=== PATIENT | female | born 1935 | race Caucasian/White ===

== ENCOUNTER 2017-02-23 13:29 | Observation (INO) | payer MEDICARE, SELFPAY ==
[2017-02-23 14:15] LABS: #Basophils 0.1 thou/uL (0.0-0.2); #Eosinphils 0.3 thou/uL (0.0-0.7); #Lymphocytes 3.2 thou/uL (1.20-3.40); #Monocytes 0.7 thou/uL (0.11-0.59); %Basophils 1.5 % (0.0-1.0); %Eosinophils 3.4 % (0.0-10.0); %Lymphocytes 38.2 % (21.0-51.0); %Monocytes 8.4 % (0.0-10.0); Hematocrit 34.1 % (36.0-47.0); Red Blood Cell (RBC) Count 3.98 mill/uL (4.20-5.40); White Blood Cell (WBC) Count 8.4 thou/uL (4.8-10.8)
[2017-02-23 14:35] LABS: ALT (SGPT) 10 U/L (8-55); AST (SGOT) 19 U/L (5-34); Alkaline Phosphatase 84 U/L (40-150); Anion Gap 14 mmol/L (10-20); BUN (Urea Nitrogen) 13 mg/dL (9.8-20.1); Bilirubin, Total 0.3 mg/dL (0.2-1.2); Calc. Creatinine Clearance 0 mL/min (70-130); Calcium 9.7 mg/dL (7.8-10.44); Carbon Dioxide 22 mmol/L (23-31); Chloride 97 mmol/L (98-107); Estimated GFR-MDRD 73; Globulin 3.3 g/dL (2.4-3.5); Lipase 24 U/L (8-78); Protein, Total 7.4 g/dL (6.0-8.3)
[2017-02-23 14:36] LABS: Bilirubin Negative (Negative); Blood, Urine Small (Negative); Glucose, Urine (Dipstick) Negative (Negative); Ketone, Urine Negative (Negative); Nitrite Positive (Negative); Protein, Urine (Dipstick) Negative (Neg-Trace); Urobilinogen 0.2 mg/dL (0.2-1.0)
[2017-02-23 14:41] LABS: Bacteria/HPF 3+ HPF (None Seen)
[2017-02-23] MEDS ORDERED: Ciprofloxacin 500 MG TAB ONE (15:24)
[2017-02-23 16:56] VITALS: BMI 26.5
[2017-02-23] MEDS ORDERED: FLU VACC TS2017-18 (>65YR) 0.5 ML SYRINGE IM ONE (17:15)
[2017-02-23] MEDS ORDERED: Sodium Chloride 0.9% 1,000 ML IV SCH (17:42)
[2017-02-24] MEDS ORDERED: Sodium Chloride 0.9% 1,000 ML IV SCH (02:45)
[2017-02-24] MEDS ORDERED: cefTRIAXone\\ROCEPHIN 1 GM, Syringe 0.4 ML in Sterile Water 9.6 ML SLOW IVP SCH (03:00)
[2017-02-24 05:11] LABS: #Eosinphils 0.3 thou/uL (0.0-0.7); #Lymphocytes 2.6 thou/uL (1.20-3.40); #Monocytes 0.6 thou/uL (0.11-0.59); #Neutrophils 2.6 thou/uL (1.40-6.50); %Basophils 0.8 % (0.0-1.0); %Eosinophils 5.3 % (0.0-10.0); %Lymphocytes 42.5 % (21.0-51.0); %Monocytes 9.3 % (0.0-10.0); Hematocrit 34.3 % (36.0-47.0); Mean Platelet Volume 8.1 fL (7.4-10.4); White Blood Cell (WBC) Count 6.2 thou/uL (4.8-10.8)
[2017-02-24 05:31] LABS: Anion Gap 11 mmol/L (10-20); BUN (Urea Nitrogen) 10 mg/dL (9.8-20.1); Calc. Creatinine Clearance 65 mL/min (70-130); Calcium 9.1 mg/dL (7.8-10.44); Carbon Dioxide 20 mmol/L (23-31); Chloride 99 mmol/L (98-107); Estimated GFR-MDRD 81
[2017-02-24] MEDS: Acetaminophen 500 MG TAB PO PRN (09:30)
[2017-02-24] MEDS ORDERED: HYDROcodone/Acetaminophen 10/325 mg Tablet PO PRN (10:14)
[2017-02-24] MEDS ORDERED: Loperamide HCl 2 MG CAP PO PRN (10:14)
[2017-02-24] MEDS ORDERED: Acetaminophen 325 MG TAB PO PRN (10:14)
[2017-02-24] MEDS ORDERED: Sodium Chloride 1 GM TAB PO SCH (10:30)
[2017-02-24] MEDS: HYDROcodone/Acetaminophen 5/325 mg Tablet PO PRN (10:54)
[2017-02-24] MEDS: Sodium Chloride 0.9% 1,000 ML IV SCH ×3 (10:55→23:26)
[2017-02-24] MEDS: Ondansetron ODT 4 MG TAB PO PRN ×2 (12:50→18:24)
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
[2017-02-24] MEDS ORDERED: hydrALAZINE 20 MG/ML VIAL SLOW IVP SCH (16:30)
[2017-02-24] MEDS: Famotidine/PF 20 mg/2ml Vial SLOW IVP SCH (20:11)
[2017-02-24] MEDS: Sodium Chloride 1 GM TAB PO SCH (20:24)
[2017-02-25] MEDS: HYDROcodone/Acetaminophen 5/325 mg Tablet PO PRN ×2 (01:35→10:10)
[2017-02-25 05:29] LABS: #Basophils 0.1 thou/uL (0.0-0.2); #Eosinphils 0.3 thou/uL (0.0-0.7); #Lymphocytes 2.3 thou/uL (1.20-3.40); #Monocytes 0.5 thou/uL (0.11-0.59); #Neutrophils 2.4 thou/uL (1.40-6.50); %Basophils 1.3 % (0.0-1.0); %Eosinophils 4.8 % (0.0-10.0); %Lymphocytes 41.4 % (21.0-51.0); %Monocytes 9.5 % (0.0-10.0); Hematocrit 30.3 % (36.0-47.0); Mean Platelet Volume 7.7 fL (7.4-10.4); Red Blood Cell (RBC) Count 3.35 mill/uL (4.20-5.40); White Blood Cell (WBC) Count 5.6 thou/uL (4.8-10.8)
[2017-02-25 05:54] LABS: Anion Gap 11 mmol/L (10-20); BUN (Urea Nitrogen) 8 mg/dL (9.8-20.1); Calc. Creatinine Clearance 61 mL/min (70-130); Calcium 8.7 mg/dL (7.8-10.44); Carbon Dioxide 20 mmol/L (23-31); Chloride 108 mmol/L (98-107); Estimated GFR-MDRD 76
[2017-02-25] MEDS: Sodium Chloride 0.9% 1,000 ML IV SCH ×2 (08:33→17:17)
[2017-02-25] MEDS: Sodium Chloride 1 GM TAB PO SCH ×2 (08:33→21:17)
[2017-02-25] MEDS: Famotidine/PF 20 mg/2ml Vial SLOW IVP SCH ×2 (08:33→20:42)
[2017-02-25] MEDS ORDERED: Polyethylene Glycol OPTH DROP 15 ML BOT EA EYE PRN (12:27)
[2017-02-25] MEDS ORDERED: Non-Formulary Item 1 EACH (Ondansetron Hcl [Zofran] 4 MG) PO PRN (12:27)
[2017-02-25] MEDS: ALPRAZolam 0.25 MG TAB PO SCH ×3 (12:45→20:37)
--- NOTE | 2017-02-25 16:11 | PDOC.PN ---
- Subjective Encounter Start Date: 02/25/17 Encounter Start Time: 10:40 Pt seen earlier on rounds. no f/c, no diarrhea, no n/V, no CP or SOB. Feeling anxious. No cough or sputum production. some dysuria since catheter was removed 10 point ROS performed and neg for all except as per HPI - Objective Resuscitation Status: Resuscitation Status FULL:Full Resuscitation MAR Reviewed: Yes Vital Signs & Weight: Vital Signs (12 hours) Temp Pulse Pulse Pulse Resp BP BP 02/25/17 15:15 98.5 F 69 17 02/25/17 11:40 98.1 F 74 16 02/25/17 11:14 77 82 157/67 H 156/70 H 02/25/17 08:00 98.6 F 76 16 02/25/17 07:20 98.6 F 76 16 BP Pulse Ox 02/25/17 15:15 180/72 H 98 02/25/17 11:40 144/66 H 96 02/25/17 11:14 02/25/17 08:00 02/25/17 07:20 169/74 H 96 Weight Weight 144 lb 4.8 oz I&O: 02/24/17 02/25/17 02/26/17 06:59 06:59 06:59 Intake Total 1557 2827 250 Output Total 0 1 Balance 1557 2826 250 Result Diagrams: 02/25/17 05:01 02/25/17 05:01 Radiology Reviewed by me: Yes EKG Reviewed by me: Yes Phys Exam - Physical Examination Constitutional: NAD HEENT: PERRLA, moist MMs, sclera anicteric, oral pharynx no lesions Neck: no nodes, no JVD, supple, full ROM Respiratory: no wheezing, no rales, no rhonchi Cardiovascular: RRR, no significant murmur, no rub Gastrointestinal: soft, non-tender, no distention, positive bowel sounds Musculoskeletal: no edema, pulses present Neurological: non-focal, normal sensation, moves all 4 limbs Lymphatic: no nodes Psychiatric: normal affect, A&O x 3 Skin: no rash, normal turgor, cap refill <2 seconds Dx/Plan (1) Acute gastroenteritis Code(s): K52.9 - NONINFECTIVE GASTROENTERITIS AND COLITIS, UNSPECIFIED Status : Acute (2) Moderate dehydration Code(s): E86.0 - DEHYDRATION Status: Acute (3) Hyponatremia Code(s): E87.1 - HYPO-OSMOLALITY AND HYPONATREMIA Status: Acute (4) Anxiety Code(s): F41.9 - ANXIETY DISORDER, UNSPECIFIED Status: Acute - Plan pt medically ready fordischarge, but waiting to hear form APS regarding case. PT likely not safe to return home, will contine on observation until she is evaluated by them * .
[2017-02-25] MEDS: Acetaminophen 500 MG TAB PO PRN (20:37)
[2017-02-25] MEDS ORDERED: Atorvastatin Calcium 10 MG TAB PO SCH (21:00)
[2017-02-26] MEDS: Sodium Chloride 0.9% 1,000 ML IV SCH ×2 (01:48→09:53)
[2017-02-26] MEDS: HYDROcodone/Acetaminophen 5/325 mg Tablet PO PRN (05:29)
[2017-02-26] MEDS ORDERED: Levothyroxine Sodium 25 MCG TAB PO SCH (06:00)
[2017-02-26] MEDS ORDERED: Citalopram 20 MG TAB PO SCH (09:00)
[2017-02-26] MEDS ORDERED: Aspirin 81 mg Enteric Coated Tablet PO SCH (09:00)
[2017-02-26] MEDS: ALPRAZolam 0.25 MG TAB PO SCH ×2 (09:29→13:47)
[2017-02-26] MEDS: Sodium Chloride 1 GM TAB PO SCH (09:29)
[2017-02-26] MEDS: Famotidine/PF 20 mg/2ml Vial SLOW IVP SCH (09:31)
[2017-02-26] MEDS ORDERED: Amlodipine 10 MG TAB PO SCH (13:00)
--- NOTE | 2017-02-26 14:07 | PDOC.PN ---
- Subjective Encounter Start Date: 02/26/17 Encounter Start Time: 11:30 PT seen and examined, Case Management and grnad-daughter in the room and case discuassed with them. PT is doing well except for some nausea with eatng. No F /C, no n/V/D/C, no CP or SOB, no cough or sputum production. No GI bleeding. Looking into dispo options. APS has declared pt not to go home with daughter. PT optioned to go home with granddaughter with HHC until SNF placement can be arranged at pt out of pocket cost, or see if she qualifies for IPR. They wish to try IPR and we have asked them to evaluate. 10 point ROS performed and neg for all systems except as above - Objective Resuscitation Status: Resuscitation Status FULL:Full Resuscitation MAR Reviewed: Yes Vital Signs & Weight: Vital Signs (12 hours) Temp Pulse Resp BP BP Pulse Ox 02/26/17 13:47 78 190/79 H 02/26/17 11:50 98.7 F 78 16 190/79 H 96 02/26/17 08:00 98.8 F 78 16 02/26/17 07:42 98.8 F 78 16 161/67 H 94 L 02/26/17 02:54 98.4 F 72 16 170/69 H Weight Weight 144 lb 4.8 oz I&O: 02/25/17 02/26/17 02/27/17 06:59 06:59 06:59 Intake Total 2827 4084 Output Total 1 Balance 2826 4084 Result Diagrams: 02/25/17 05:01 02/25/17 05:01 Radiology Reviewed by me: Yes EKG Reviewed by me: Yes Phys Exam - Physical Examination Constitutional: NAD HEENT: PERRLA, moist MMs, sclera anicteric, oral pharynx no lesions Neck: no nodes, no JVD, supple, full ROM Respiratory: no wheezing, no rales, no rhonchi, clear to auscultation bilateral Cardiovascular: RRR, no significant murmur, no rub Gastrointestinal: soft, non-tender, no distention, positive bowel sounds Musculoskeletal: pulses present, edema present Neurological: non-focal, normal sensation, moves all 4 limbs Lymphatic: no nodes Psychiatric: normal affect, A&O x 3 Deviation from normal: some dementia Skin: no rash, normal turgor, cap refill <2 seconds Dx/Plan (1) Acute gastroenteritis Code(s): K52.9 - NONINFECTIVE GASTROENTERITIS AND COLITIS, UNSPECIFIED Status : Resolved Comment: no BM in 2 days. some nausea, no vomiting (2) Moderate dehydration Code(s): E86.0 - DEHYDRATION Status: Resolved Comment: D/C IV fluids (3) Hyponatremia Code(s): E87.1 - HYPO-OSMOLALITY AND HYPONATREMIA Status: Resolved (4) Anxiety Code(s): F41.9 - ANXIETY DISORDER, UNSPECIFIED Status: Chronic (5) Physical deconditioning Code(s): R53.81 - OTHER MALAISE Status: Acute - Plan cont current plan of care, plan discussed w/ family, PT/OT, criminal justice social worker * .
[2017-02-26 16:40] VITALS: BP 149/70; TEMP 97.8
[2017-02-27] MEDS ORDERED: Amlodipine 10 MG TAB PO SCH (09:00)
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
--- NOTE | 2017-04-09 12:08 | EKG ---
Test Reason : WEAKNESS Blood Pressure : / mmHG Vent. Rate : 072 BPM Atrial Rate : 072 BPM P-R Int : 174 ms QRS Dur : 080 ms QT Int : 400 ms P-R-T Axes : 057 022 039 degrees QTc Int : 438 ms Normal sinus rhythm Normal ECG Confirmed by RIRI PERRY MD ([id number]), desk editor JUSTINA LLANES ([id number]) on 04/09/2017 12:08:32 PM Referred By: Confirmed By:RIRI PERRY MD
== END 2017-02-26 17:45 ==
LOC: SCSER 13:29 → 2SW 15:09
PROVIDERS: ADMIT Internal Medicine Infectious Disease; ATTEND Internal Medicine Infectious Disease
DX: K52.9 Noninfective gastroenteritis and colitis, unspecified (principal); E86.0 Dehydration; E87.1 Hypo-osmolality and hyponatremia; F41.9 Anxiety disorder, unspecified; R53.81 Other malaise; E03.9 Hypothyroidism, unspecified; K08.109 Complete loss of teeth, unspecified cause, unspecified class; F17.210 Nicotine dependence, cigarettes, uncomplicated; Z79.82 Long term (current) use of aspirin; Z79.899 Other long term (current) drug therapy; Z97.2 Presence of dental prosthetic device (complete) (partial); Z90.49 Acquired absence of other specified parts of digestive tract; Z90.710 Acquired absence of both cervix and uterus; Z98.890 Other specified postprocedural states
CPT/HCPCS: 51701; 80048 ×2; 80053; 83605; 83690; 84443; 85025 ×3; 87077; 87086; 90732; 93005; 96361 ×5; 96374; 96375; 96376 ×2; 97116 ×2; 97139; 99285; 99406; G0008; G0009; G0378 ×2; G8978; G8979; Q2036; 36415; 81003; 81015; 90471; 90682; 96360; A4216; A4353; G8996-GN-CJ; G8997-GN-CJ; J0360; J0696; Q0162; S0028

== ENCOUNTER 2017-09-25 11:20 | Emergency (ER) | payer MEDICARE, MEDICAID ==
[2017-09-25 11:57] LABS: Bilirubin Negative (Negative); Blood, Urine Moderate (Negative); Clarity CLOUDY (Clear); Glucose, Urine (Dipstick) Negative (Negative); Leukocyte Moderate (Negative); Nitrite Positive (Negative); Protein, Urine (Dipstick) Negative (Neg-Trace); Urobilinogen 0.2 mg/dL (0.2-1.0); pH, Urine 6.5 (5.0-9.0)
[2017-09-25 11:59] LABS: Bacteria/HPF 1+ HPF (None Seen); Hyaline Casts/LPF 0-3 HYALINE CAST LPF (0-3 Hyaline); Pathc Cast-AUWi Flag 0.58 (0-2.49); Squamous Epithelial 0-3 HPF (0-3)
[2017-09-25 12:09] LABS: Crystals/HPF None Seen HPF (Negative); Oval Fat Bodies/HPF None Seen HPF (None Seen); Transitional Epithelial 0-3 HPF (0-3); Trichomonas/HPF None Seen HPF (None Seen)
[2017-09-25] MEDS ORDERED: Acetaminophen 500 MG TAB ONE ×2 (12:37→12:38)
--- NOTE | 2017-09-25 12:37 | RAD ---
THREE VIEWS RIGHT SHOULDER: HISTORY: Dementia, right shoulder pain. FINDINGS: AP internally, externally, and scapula Y views right shoulder are obtained. Three views right shoulder demonstrate degenerative changes seen in the right AC joint. No evidence of acute fractures, subluxations, or bony lesions seen. IMPRESSION: Normal 3 views right shoulder. POS: [facility]
[2017-09-25 12:49] LABS: ALT (SGPT) 9 U/L (8-55); AST (SGOT) 17 U/L (5-34); Albumin 3.9 g/dL (3.4-4.8); Alkaline Phosphatase 57 U/L (40-150); Anion Gap 14 mmol/L (10-20); BUN (Urea Nitrogen) 17 mg/dL (9.8-20.1); Bilirubin, Total 0.5 mg/dL (0.2-1.2); Calc. Creatinine Clearance 0 mL/min (70-130); Calcium 9.4 mg/dL (7.8-10.44); Carbon Dioxide 22 mmol/L (23-31); Chloride 104 mmol/L (98-107); Estimated GFR-MDRD 68; Glucose 84 mg/dL (83-110); Potassium 4.7 mmol/L (3.5-5.1); Protein, Total 6.9 g/dL (6.0-8.3); Sodium 135 mmol/L (136-145)
== END 2017-09-25 13:36 | disposition home or self-care (01) ==
LOC: ERS 11:20
DX: R45.1 Restlessness and agitation (principal); N39.0 Urinary tract infection, site not specified; Z71.6 Tobacco abuse counseling; E03.9 Hypothyroidism, unspecified; E78.5 Hyperlipidemia, unspecified; I25.2 Old myocardial infarction; D64.9 Anemia, unspecified; F03.90 Unspecified dementia, unspecified severity, without behavioral disturbance, psychotic disturbance, mood disturbance, and anxiety; F41.9 Anxiety disorder, unspecified; F32.9 Major depressive disorder, single episode, unspecified; F17.210 Nicotine dependence, cigarettes, uncomplicated; Z79.899 Other long term (current) drug therapy
CPT/HCPCS: 51701; 80053; 81003; 81015; 87077; 87086; 87186; 99406; A4353

== ENCOUNTER 2020-07-17 14:36 | Inpatient (IN) | payer MEDICARE, MEDICAID ==
[2020-07-17] MEDS ORDERED: HYDROcodone/Acetaminophen 10/325 mg Tablet ONE (14:41)
[2020-07-17] MEDS ORDERED: Nitroglycerin 0.4 MG TAB 1 EACH ONE (14:42)
[2020-07-17] MEDS ORDERED: Norepinephrine 8 MG/0.9% NS 250 ML ONE (14:42)
[2020-07-17] MEDS ORDERED: Fentanyl 100 MCG/2 ML VIAL ONE (14:52)
[2020-07-17 15:00] LABS: Analyzer IN Cardio ER; Base Excess (BEa) -0.9 mEq/L (-2.0 to +3.0); CO2 Tension 40.7 mmHg (35.0-45.0); Calcium, Ionized (arterial) 1.31 mmol/L (1.12-1.30); Carboxyhemoglobin (COHb) 0.3 gm% (0.0-3.0); Hemoglobin (Hb) 9.6 g/dL (12.0-16.0); O2 Tension (PaO2), arterial 70.3 mmHg (> 60.0); Potassium - ABG Lab 3.52 mmol/L (3.70-5.30); pH, Arterial 7.39 (7.35-7.45)
[2020-07-17] MEDS ORDERED: Fentanyl CADD 100 ML IV SCH ×2 (15:00→19:15)
[2020-07-17 15:01] LABS: ALV-art Gradient 164.025 mmHg (0-20); Puncture Site LRA
[2020-07-17] MEDS ORDERED: levETIRAcetam in NS 200 ML ONE (15:09)
[2020-07-17] MEDS ORDERED: Cefepime 2 GM VIAL ONE (15:09)
[2020-07-17 16:07] LABS: SARS-CoV-2 NAA Rapid Test Not Detected (NotDetected)
[2020-07-17] MEDS ORDERED: Vancomycin 1 GM/200 ML BAG ONE (17:11)
[2020-07-17 17:13] LABS: Bilirubin Negative (Negative); Blood, Urine 2+ (Negative); Clarity Extra Turbid (Clear); Glucose, Urine (Dipstick) Normal (Negative); Ketone, Urine Negative (Negative); Leukocyte 500 Leu/uL (Negative); Nitrite Negative (Negative); Protein, Urine (Dipstick) 100 mg/dL (Neg-Trace); RBC/HPF Greater than 50 HPF (0-3); Squamous Epithelial 0-3 HPF (0-3); Urobilinogen Normal mg/dL (Less than 2); WBC/HPF Greater than 50 HPF (0-3); pH, Urine 6.5 (5.0-9.0)
[2020-07-17 17:14] LABS: Bacteria/HPF 2+ HPF (None Seen)
[2020-07-17] MEDS ORDERED: Enoxaparin Sodium 30 MG/0.3 ML SYRINGE SC SCH (18:00)
[2020-07-17 18:55] LABS: Phosphorus 3.3 mg/dL (2.3-4.7)
[2020-07-17] MEDS ORDERED: Ventilator Sedation Protocol 1 EACH FS SCH (19:00)
[2020-07-17] MEDS ORDERED: Propofol 1,000 MG/100 ML VIAL IV PRN (19:15)
[2020-07-17] MEDS ORDERED: Propofol BOLUS 1,000 MG/100 ML VIAL IV PRN (19:15)
[2020-07-17] MEDS ORDERED: Fentanyl BOLUS 250 ML IVPB PRN (19:15)
[2020-07-17] MEDS ORDERED: DISCONTINUE PREVIOUS NARCOTIC PAIN MEDICATIONS AND BENZODIAZEPINES FS SCH (19:15)
[2020-07-17] MEDS ORDERED: Lorazepam 2 MG/ML VIAL SLOW IVP PRN (19:15)
[2020-07-17] MEDS ORDERED: Morphine 2 MG/ML VIAL SLOW IVP PRN (19:15)
[2020-07-17 19:51] LABS: Lactic Acid 5.5 mmol/L (0.5-2.2)
[2020-07-17 20:00] LABS: Hemoglobin 9.2 g/dL (12.0-16.0); Mean Corpuscular HGB CONC 33.4 g/dL (32.0-36.0); Mean Corpuscular Volume 92.7 fL (78.0-98.0); Mean Platelet Volume 8.6 fL (7.4-10.4); Platelet Count 300 thou/uL (130-400); RBC Distribution Width 12.4 % (11.5-14.5); Red Blood Cell (RBC) Count 2.98 mill/uL (4.20-5.40); White Blood Cell (WBC) Count 25.5 thou/uL (4.8-10.8)
[2020-07-17 20:05] LABS: INR-International Normal Ratio 1.1; PTT 27.4 sec (22.9-36.1); Prothrombin Time 14.4 sec (12.0-14.7)
[2020-07-17 20:06] LABS: ALT (SGPT) 93 U/L (8-55); AST (SGOT) 90 U/L (5-34); Albumin 4.1 g/dL (3.4-4.8); Alkaline Phosphatase 91 U/L (40-110); Anion Gap 21 mmol/L (10-20); BUN (Urea Nitrogen) 72 mg/dL (9.8-20.1); Bilirubin, Total 0.4 mg/dL (0.2-1.2); Calc. Creatinine Clearance 0 mL/min (70-130); Calcium 9.8 mg/dL (7.8-10.44); Carbon Dioxide 21 mmol/L (23-31); Chloride 102 mmol/L (98-107); Globulin 3.2 g/dL (2.4-3.5); Glucose 259 mg/dL (83-110); Magnesium 2.2 mg/dL (1.6-2.6); Potassium 3.8 mmol/L (3.5-5.1); Protein, Total 7.3 g/dL (5.8-8.1); Sodium 140 mmol/L (136-145)
[2020-07-17 20:28] LABS: Band 1 % (5-11); Lymphocytes 6 % (21-51); MDiff Complete? YES; Monocytes 7 % (0-10); Neutrophil 86 % (42-75); Platelet Morphology Comment Appears Adequate
[2020-07-17] MEDS ORDERED: Famotidine/PF 20 mg/2ml Vial SLOW IVP SCH (21:00)
[2020-07-17] MEDS: Sodium Chloride 0.9% 1,000 ML IV SCH (21:26)
[2020-07-17 22:21] VITALS: BMI 33.1
[2020-07-17] MEDS ORDERED: Norepinephrine 8 MG/0.9% NS 250 ML IVPB SCH (22:45)
[2020-07-17] MEDS: MEROPENEM 1 GM/50 ML 1 GM in Premix Bag 1 BAG IVPB SCH (22:46)
[2020-07-17 23:29] LABS: Lactic Acid 6.4 mmol/L (0.5-2.2)
[2020-07-18] MEDS: Sodium Chloride 0.9% 1,000 ML IV SCH ×2 (02:35→09:23)
[2020-07-18 04:24] LABS: #Monocytes 0.7 thou/uL (0.11-0.59); #Neutrophils 15.9 thou/uL (1.40-6.50); %Eosinophils 0.1 % (0.0-10.0); %Lymphocytes 5.8 % (21.0-51.0); %Monocytes 4.2 % (0.0-10.0); %Neutrophils 89.9 % (42.0-75.0); Hemoglobin 8.5 g/dL (12.0-16.0); Mean Corpuscular Hemoglobin 30.4 pg (27.0-31.0); Mean Corpuscular Volume 92.2 fL (78.0-98.0); Mean Platelet Volume 8.7 fL (7.4-10.4); Platelet Count 269 thou/uL (130-400); RBC Distribution Width 12.7 % (11.5-14.5); Red Blood Cell (RBC) Count 2.78 mill/uL (4.20-5.40); White Blood Cell (WBC) Count 17.6 thou/uL (4.8-10.8)
[2020-07-18] MEDS: MEROPENEM 1 GM/50 ML 1 GM in Premix Bag 1 BAG IVPB SCH ×2 (04:24→11:45)
[2020-07-18 04:53] LABS: Anion Gap 19 mmol/L (10-20); BUN (Urea Nitrogen) 67 mg/dL (9.8-20.1); Calc. Creatinine Clearance 29 mL/min (70-130); Calcium 9.4 mg/dL (7.8-10.44); Carbon Dioxide 21 mmol/L (23-31); Chloride 105 mmol/L (98-107); Glucose 143 mg/dL (83-110); Potassium 4.5 mmol/L (3.5-5.1); Sodium 140 mmol/L (136-145)
[2020-07-18 07:26] LABS: Actual Bicarbonate (HCO3a) 24.1 mEq/L (22-28); Base Excess (BEa) 0.8 mEq/L (-2.0 to +3.0); CO2 Tension 33.3 mmHg (35.0-45.0); Calcium, Ionized (arterial) 1.17 mmol/L (1.12-1.30); Carboxyhemoglobin (COHb) 1.2 gm% (0.0-3.0); O2 Tension (PaO2), arterial 75.7 mmHg (> 60.0); Potassium - ABG Lab 4.29 mmol/L (3.70-5.30); pH, Arterial 7.48 (7.35-7.45)
[2020-07-18 07:29] LABS: ALV-art Gradient 167.875 mmHg (0-20); Puncture Site RRA
[2020-07-18] MEDS ORDERED: Enoxaparin Sodium 30 MG/0.3 ML SYRINGE SC SCH (09:00)
[2020-07-18] MEDS ORDERED: methylPREDNISolone 4 mg Tablet PO SCH (09:00)
[2020-07-18] MEDS ORDERED: levETIRAcetam in NS 100 ML IVPB SCH (11:00)
[2020-07-18 14:58] VITALS: BP 149/58
[2020-07-18] MEDS ORDERED: Morphine 2 MG/ML VIAL SLOW IVP PRN (15:51)
[2020-07-18] MEDS ORDERED: Lorazepam 2 MG/ML VIAL SLOW IVP PRN (15:52)
[2020-07-18 16:23] VITALS: TEMP 98.3
[2020-07-18] MEDS ORDERED: levETIRAcetam in NS 500 MG in Premix Bag 1 BAG IVPB SCH (21:00)
== END 2020-07-18 18:16 | disposition expired | DRG 871 ==
LOC: ERS 14:36 → CCU 15:44
PROVIDERS: ADMIT Internal Medicine; ATTEND Internal Medicine
PROC: 5A1935Z Respiratory Ventilation, Less than 24 Consecutive Hours (ICD-10-PCS; principal; 2020-07-17)
PROC: 3E033XZ Introduction of Vasopressor into Peripheral Vein, Percutaneous Approach (ICD-10-PCS; 2020-07-17)
PROC: 06HY33Z Insertion of Infusion Device into Lower Vein, Percutaneous Approach (ICD-10-PCS; 2020-07-17)
DX: A41.9 Sepsis, unspecified organism (principal); J69.0 Pneumonitis due to inhalation of food and vomit; J96.01 Acute respiratory failure with hypoxia; E87.2 Acidosis; G93.1 Anoxic brain damage, not elsewhere classified; N39.0 Urinary tract infection, site not specified; Z20.822 Contact with and (suspected) exposure to COVID-19; Z66 Do not resuscitate; Z51.5 Encounter for palliative care; I46.8 Cardiac arrest due to other underlying condition; F03.90 Unspecified dementia, unspecified severity, without behavioral disturbance, psychotic disturbance, mood disturbance, and anxiety; E66.01 Morbid (severe) obesity due to excess calories; F41.9 Anxiety disorder, unspecified; E78.5 Hyperlipidemia, unspecified; I10 Essential (primary) hypertension; E11.9 Type 2 diabetes mellitus without complications; I25.2 Old myocardial infarction; Z79.82 Long term (current) use of aspirin; Z78.1 Physical restraint status; Z86.73 Personal history of transient ischemic attack (TIA), and cerebral infarction without residual deficits; Z86.16 Personal history of COVID-19; Z68.33 Body mass index [BMI] 33.0-33.9, adult; Z79.899 Other long term (current) drug therapy; Z79.890 Hormone replacement therapy; R56.9 Unspecified convulsions; E03.9 Hypothyroidism, unspecified; Z90.710 Acquired absence of both cervix and uterus; Z90.89 Acquired absence of other organs; F17.210 Nicotine dependence, cigarettes, uncomplicated
CPT/HCPCS: 0240U; 36415; 36556; 36600; 51702; 70450; 71045; 80048; 81003; 81015; 82805; 83036; 83605; 83735; 83880; 84100; 84145; 85025; 87040; 87070; 87076; 87086; 87149; 87186; 87205; 87635; 93005; 93010; 94002; 94003; 95712; 95819; 95957; 96365; 96366; 96367; 96368; 96376; C9803; J0692; J1650; J1953; J2060; J2185; J2270; J3010; J3370; J7509; S0028; U0003; U0005